=== PATIENT | male | born 1980 | race Hispanic/Latino ===

== ENCOUNTER 2018-01-02 20:30 | Outpatient (CLI) | payer OTHER | END 2018-01-02 20:31 | disposition home or self-care (01) | LOC: SLEEPLAB 20:30 | PROVIDERS: ATTEND Family Medicine | DX: G47.33 Obstructive sleep apnea (adult) (pediatric); I10 Essential (primary) hypertension; Z68.43 Body mass index [BMI] 50.0-59.9, adult; R35.1 Nocturia; E66.9 Obesity, unspecified | CPT/HCPCS: 95811 ==

== ENCOUNTER 2021-01-13 11:12 | Outpatient (CLI) | payer OTHER ==
[2021-01-13 12:58] LABS: Hemoglobin 14.6 g/dL (13.5-17.5); Mean Corpuscular HGB CONC 33.3 g/dL (32.0-36.0); Mean Corpuscular Hemoglobin 29.6 pg (27.0-33.0); Mean Corpuscular Volume 88.9 fl (81.2-95.1); Mean Platelet Volume 9.8 fl (7.4-10.4); Platelet Count 283 10x3/uL (150-450); RBC Distribution Width 12.5 % (11.5-14.5); Red Blood Cell (RBC) Count 4.94 10x6/uL (4.32-5.72); White Blood Cell (WBC) Count 7.7 10x3/uL (3.5-10.5)
[2021-01-13 13:12] LABS: Anion Gap 15 mmol/L (10-20); BUN (Urea Nitrogen) 11 mg/dL (8.9-20.6); Calc. Creatinine Clearance 0 mL/min (70-130); Calcium 9.2 mg/dL (7.8-10.44); Carbon Dioxide 28 mmol/L (22-29); Chloride 102 mmol/L (98-107); Glucose 128 mg/dL (70-105); Potassium 4.7 mmol/L (3.5-5.1); Sodium 140 mmol/L (136-145)
== END 2021-01-13 11:13 | disposition home or self-care (01) ==
LOC: LABBT 11:12
PROVIDERS: ATTEND Neurological Surgery
DX: Z01.818 Encounter for other preprocedural examination (principal); M47.12 Other spondylosis with myelopathy, cervical region
CPT/HCPCS: 80048; 85027; 93005; 93010

== ENCOUNTER 2021-01-18 08:41 | Observation (INO) | payer OTHER ==
[2021-01-15 10:34] VITALS: BMI 50.1
[2021-01-18] MEDS ORDERED: Fentanyl 100 MCG/2 ML VIAL ONE ×3 (13:41→17:49)
[2021-01-18] MEDS ORDERED: Ketamine 50 MG/ML (10ML VIAL) ONE (13:41)
[2021-01-18] MEDS ORDERED: Dexmedetomidine 200 MCG/2 ML VIAL ONE (13:42)
[2021-01-18] MEDS ORDERED: Bacitracin Zinc Ointment 30 gm TUBE ONE (13:47)
[2021-01-18] MEDS ORDERED: Lidocaine 1% PF 5 ML VIAL ONE (14:07)
[2021-01-18] MEDS ORDERED: Dexamethasone 20 MG/5 ML VIAL ONE (14:07)
[2021-01-18] MEDS ORDERED: Ondansetron PF 4 MG/2 ML Vial ONE (14:07)
[2021-01-18] MEDS ORDERED: PHENYLEPHRINE-NS 100 MCG/ML 10 ML SYRINGE ONE (14:07)
[2021-01-18] MEDS ORDERED: PROPOFOL 200 MG/20 ML VIAL ONE (14:07)
[2021-01-18] MEDS ORDERED: Glycopyrrolate 0.2 MG/ML 5 ML SYRINGE ONE (14:07)
[2021-01-18] MEDS ORDERED: Rocuronium Bromide 10 MG/ML (10ML VIAL) ONE (14:07)
[2021-01-18] MEDS ORDERED: Vecuronium 10 MG VIAL ONE ×3 (14:07→16:13)
[2021-01-18] MEDS ORDERED: PACU-Morphine 4MG/ML VIAL SLOW IVP PRN (17:34)
[2021-01-18] MEDS ORDERED: Morphine Sulfate 2 MG/ML SYRINGE SLOW IVP PRN (17:34)
[2021-01-18] MEDS ORDERED: Promethazine HCl 25 MG/ML VIAL IM PRN ×2 (17:34→18:00)
[2021-01-18] MEDS ORDERED: HYDROmorphone 2 MG/ML VIAL SLOW IVP PRN (17:34)
[2021-01-18] MEDS ORDERED: Ondansetron HCl/PF 4 MG/2 ML Vial IVP PRN (17:34)
[2021-01-18] MEDS ORDERED: Promethazine HCl 25 MG/ML VIAL SLOW IVP PRN (17:34)
[2021-01-18] MEDS ORDERED: Promethazine HCl 12.5 MG SUPP PR PRN (18:00)
[2021-01-18] MEDS ORDERED: Acetaminophen/Codeine 30-300mg Tablet PO PRN (18:00)
[2021-01-18] MEDS ORDERED: Promethazine 25 MG TAB PO PRN (18:00)
[2021-01-18] MEDS ORDERED: Mag-Al 1200 mg/1200 mg/30 ML UDCUP PO PRN (18:00)
[2021-01-18] MEDS ORDERED: Morphine 2 MG/ML VIAL SLOW IVP PRN (18:00)
[2021-01-18] MEDS ORDERED: Morphine 4 MG/ML VIAL SLOW IVP PRN (18:00)
[2021-01-18] MEDS ORDERED: Ondansetron PF 4 MG/2 ML Vial IVP PRN ×2 (18:00→19:59)
[2021-01-18] MEDS ORDERED: Milk Of Magnesia 30 ML UDCUP PO PRN (18:00)
[2021-01-18] MEDS ORDERED: diphenhydrAMINE 50 MG/ML VIAL IVP PRN (18:00)
[2021-01-18] MEDS ORDERED: diphenhydrAMINE 25 MG CAP PO PRN (18:00)
[2021-01-18] MEDS ORDERED: traMADol HCl 50 MG TAB PO PRN (18:00)
[2021-01-18] MEDS: CEFAZOLIN 2 GM in Premix Bag 1 BAG IVPB SCH (20:14)
[2021-01-18] MEDS: tiZANidine HCl 4 MG TAB PO PRN (20:55)
[2021-01-18] MEDS: Acetaminophen/Codeine 30-300mg Tablet PO PRN (20:56)
[2021-01-19] MEDS: Acetaminophen/Codeine 30-300mg Tablet PO PRN ×5 (00:17→20:28)
[2021-01-19] MEDS: traMADol HCl 50 MG TAB PO PRN (02:42)
[2021-01-19] MEDS: tiZANidine HCl 4 MG TAB PO PRN ×2 (02:42→20:28)
[2021-01-19] MEDS: CEFAZOLIN 2 GM in Premix Bag 1 BAG IVPB SCH ×3 (02:43→17:06)
[2021-01-19] MEDS: Tamsulosin HCl 0.4 MG CAP PO SCH (04:38)
[2021-01-20] MEDS: CEFAZOLIN 2 GM in Premix Bag 1 BAG IVPB SCH (00:55)
[2021-01-20] MEDS: traMADol HCl 50 MG TAB PO PRN ×2 (00:57→08:44)
[2021-01-20] MEDS: Tamsulosin HCl 0.4 MG CAP PO SCH (05:06)
[2021-01-20] MEDS: Acetaminophen/Codeine 30-300mg Tablet PO PRN ×3 (06:22→21:40)
[2021-01-20] MEDS: tiZANidine HCl 4 MG TAB PO PRN ×2 (06:22→16:39)
[2021-01-20] MEDS: Cephalexin 250 MG CAP PO SCH ×4 (08:43→19:46)
[2021-01-21] MEDS: Tamsulosin HCl 0.4 MG CAP PO SCH (06:06)
[2021-01-21] MEDS: Acetaminophen/Codeine 30-300mg Tablet PO PRN (06:07)
[2021-01-21] MEDS: Cephalexin 250 MG CAP PO SCH ×2 (08:25→13:56)
[2021-01-21 15:40] VITALS: BP 155/90; TEMP 98.5
== END 2021-01-21 15:44 | disposition home or self-care (01) ==
LOC: SDC 08:41 → SURG A 17:40
PROVIDERS: ADMIT Neurological Surgery; ATTEND Neurological Surgery
PROC: 0RG10A0 Fusion of Cervical Vertebral Joint with Interbody Fusion Device, Anterior Approach, Anterior Column, Open Approach (ICD-10-PCS; principal; 2021-01-18)
PROC: 0RT30ZZ Resection of Cervical Vertebral Disc, Open Approach (ICD-10-PCS; 2021-01-18)
PROC: 0RG1071 Fusion of Cervical Vertebral Joint with Autologous Tissue Substitute, Posterior Approach, Posterior Column, Open Approach (ICD-10-PCS; 2021-01-18)
DX: M47.12 Other spondylosis with myelopathy, cervical region (principal); M50.023 Cervical disc disorder at C6-C7 level with myelopathy; M48.02 Spinal stenosis, cervical region; G47.30 Sleep apnea, unspecified
CPT/HCPCS: 76000; 96365; 96375; C1713; C1768; C1776; G0378; J0690; J1100; J2270; J2405; J2704; J3010; J3370; J3490

== ENCOUNTER 2021-02-09 16:01 | Outpatient (CLI) | payer OTHER | END 2021-02-09 16:02 | disposition home or self-care (01) | LOC: TBSIIMAG 16:01 | PROVIDERS: ATTEND Neurological Surgery | DX: M47.12 Other spondylosis with myelopathy, cervical region (principal); Z98.1 Arthrodesis status | CPT/HCPCS: 72040 ==

== ENCOUNTER 2021-03-02 16:36 | Emergency (ER) | payer OTHER ==
[2021-03-02] MEDS ORDERED: Lidocaine 1% w/Epinephrine 1:100K 20 ML VIAL ONE (18:42)
== END 2021-03-02 19:40 | disposition home or self-care (01) ==
LOC: ERS 16:36
DX: T81.31XA Disruption of external operation (surgical) wound, not elsewhere classified, initial encounter (principal); Z98.890 Other specified postprocedural states
CPT/HCPCS: 99283

== ENCOUNTER 2021-03-30 09:05 | Outpatient (CLI) | payer OTHER | END 2021-03-30 09:06 | disposition home or self-care (01) | LOC: TBSIIMAG 09:05 | PROVIDERS: ATTEND Physician Assistant | DX: M47.12 Other spondylosis with myelopathy, cervical region (principal); Z98.1 Arthrodesis status | CPT/HCPCS: 72040 ==

== ENCOUNTER 2021-09-06 13:06 | Outpatient (CLI) | payer OTHER | END 2021-09-06 13:07 | disposition home or self-care (01) | LOC: TBSIIMAG 13:06 | PROVIDERS: ATTEND Neurological Surgery | DX: M51.16 Intervertebral disc disorders with radiculopathy, lumbar region (principal); M51.27 Other intervertebral disc displacement, lumbosacral region; M47.26 Other spondylosis with radiculopathy, lumbar region | CPT/HCPCS: 72148 ==

== ENCOUNTER 2022-05-26 09:38 | Outpatient (CLI) | payer OTHER | END 2022-05-26 09:39 | disposition home or self-care (01) | LOC: TBSIIMAG 09:38 | PROVIDERS: ATTEND Neurological Surgery | DX: M51.36 Other intervertebral disc degeneration, lumbar region (principal); M50.30 Other cervical disc degeneration, unspecified cervical region; M47.816 Spondylosis without myelopathy or radiculopathy, lumbar region; M47.817 Spondylosis without myelopathy or radiculopathy, lumbosacral region; M47.815 Spondylosis without myelopathy or radiculopathy, thoracolumbar region; M47.812 Spondylosis without myelopathy or radiculopathy, cervical region; M51.24 Other intervertebral disc displacement, thoracic region; Z98.890 Other specified postprocedural states | CPT/HCPCS: 72141; 72158 ==